=== PATIENT | male | born 1945 | race Caucasian/White ===

== ENCOUNTER 2021-05-18 20:49 | Inpatient (IN) | payer OTHER ==
[2021-05-18 21:16] VITALS: BMI 65.1
[2021-05-18] MEDS ORDERED: NALOXONE HCL 0.4 MG/ML VIAL IVPUSH ONE (21:32)
[2021-05-18] MEDS ORDERED: NALOXONE HCL 0.4 MG/ML VIAL ONE (21:42)
[2021-05-18 22:26] LABS: HEMATOCRIT 47.1 % (35.4-49); HEMOGLOBIN 15.4 GM/dL (11.7-16.9); MCH 31.7 pg (25.7-33.7); MCHC 32.7 g/dl (32.0-35.9); MEAN CELL VOLUME 96.9 fl (80-96); PLATELET COUNT 233 10^3/uL (134-434); RBC 4.86 M/mm3 (4.00-5.60); WHITE BLOOD COUNT 16.2 K/mm3 (4.0-10.0)
[2021-05-18 22:28] LABS: CHLORIDE 104 mmol/L (98-107); SODIUM 141 mmol/L (136-145)
[2021-05-18 22:29] LABS: INR 1.06 (0.83-1.09); PROTHROMBIN TIME (PATIENT) 12.2 SEC (9.7-13.0)
[2021-05-18 22:30] LABS: ALBUMIN 4.3 g/dl (3.4-5.0); ANION GAP 8 MMOL/L (8-16); CALCIUM 9.7 mg/dL (8.5-10.1); CO2 29 mmol/L (21-32); GLUCOSE,RANDOM 157 mg/dL (74-106); MAGNESIUM 2.4 mg/dL (1.8-2.4)
[2021-05-18 22:32] LABS: ACTIVATED PTT 33.2 SECONDS (25.2-36.5)
[2021-05-18 22:33] LABS: CREATININE 2.8 mg/dL (0.55-1.3); SGOT/AST 33 U/L (15-37); SGPT/ALT 46 U/L (13-61)
[2021-05-18 22:35] LABS: BILIRUBIN,TOTAL 1.2 mg/dL (0.2-1); TOT PROT 8.6 g/dl (6.4-8.2)
[2021-05-18 22:36] LABS: EPI CELLS 12 /uL (0-25.1); HYALINE CASTS 6 /uL (0-3.1); PH,URINE 5.5 (5.0-8.0); URINE APPEARANCE TURBID; URINE BACTERIA 3 /uL (0-1359); URINE BILIRUBIN NEGATIVE (NEGATIVE); URINE COLOR YELLOW; URINE GLUCOSE (UA) NEGATIVE (NEGATIVE); URINE KETONE TRACE (NEGATIVE); URINE LEUK ESTERASE TRACE (NEGATIVE); URINE NITRITE NEGATIVE (NEGATIVE); URINE PROTEIN TRACE (NEGATIVE); URINE RBC 20 /uL (0-23.9); URINE WBC 9 /uL (0-25.8)
[2021-05-18 22:36] LABS: ALK PHOS 124 U/L (45-117)
[2021-05-18 22:48] LABS: LACTIC ACID 2.6 mmol/L (0.4-2.0)
[2021-05-18] MEDS ORDERED: SODIUM CHLORIDE 1,000 ML IV STA (22:55)
[2021-05-19 00:01] LABS: N-TERMINAL BNP 417.1 pg/ml (5-450)
[2021-05-19 00:01] LABS: METHADONE, UR NEGATIVE (NEGATIVE); PHENCYCLIDINE,URINE NEGATIVE (NEGATIVE); URINE BENZODIAZEPINES NEGATIVE (NEGATIVE)
[2021-05-19 00:02] LABS: COCAINE, UR NEGATIVE (NEGATIVE); OPIATES, URI POSITIVE (NEGATIVE); URINE AMPHETAMINES NEGATIVE (NEGATIVE); URINE BARBITURATES NEGATIVE (NEGATIVE)
[2021-05-19] MEDS ORDERED: ACETAMINOPHEN 325 MG TABLET (FP) PO PRN (01:00)
[2021-05-19] MEDS ORDERED: POLYETHYLENE GLYCOL (HEALTHYLAX) 3350 17 GM PACKET PO PRN (01:00)
[2021-05-19 02:08] LABS: CALCIUM 8.6 mg/dL (8.5-10.1)
[2021-05-19 02:12] LABS: CREATININE 2.8 mg/dL (0.55-1.3)
[2021-05-19 02:25] LABS: LACTIC ACID 2.4 mmol/L (0.4-2.0)
[2021-05-19] MEDS ORDERED: DEXTROSE 50%-WATER - 25 GM/50 ML VIAL IVPUSH STA (02:32)
[2021-05-19] MEDS ORDERED: INSULIN REGULAR HUMAN 100 UNITS/ML *VIAL IVPUSH ONE (02:32)
[2021-05-19] MEDS ORDERED: SODIUM BICARBONATE 8.4% 50 MEQ/50 ML DISP.SYRIN IVPUSH ONE (02:35)
[2021-05-19] MEDS ORDERED: SODIUM BICARBONATE 8.4% - 50 ML ONE (02:44)
[2021-05-19] MEDS: INSULIN SLIDING SCALE (NOVOLOG) 1 VIAL SQ SCH ×3 (08:07→21:53)
[2021-05-19] MEDS ORDERED: SODIUM ZIRCONIUM CYCLOSILICATE (LOKELMA) 5 GM PACKET ONE (08:11)
[2021-05-19] MEDS ORDERED: MULTIVITAMINS (DAILY MVI) TABLET (FP) ONE (08:11)
[2021-05-19] MEDS ORDERED: ASPIRIN COATED 81 MG TABLET.EC ONE (08:11)
[2021-05-19] MEDS: SODIUM ZIRCONIUM CYCLOSILICATE (LOKELMA) 5 GM PACKET PO SCH (10:37)
[2021-05-19] MEDS: ASPIRIN COATED 81 MG TABLET.EC PO SCH (10:37)
[2021-05-19] MEDS: FLUTICASONE PROP 0.05% 16 GM NASAL SPRAY NS SCH (10:37)
[2021-05-19] MEDS: MULTIVITAMINS (DAILY MVI) TABLET (FP) PO SCH (10:37)
[2021-05-20] MEDS: INSULIN SLIDING SCALE (NOVOLOG) 1 VIAL SQ SCH ×4 (06:00→20:35)
[2021-05-20 08:53] LABS: BASO % 0.4 % (0-2.0); EOS % 5.4 % (0-4.5); HEMATOCRIT 39.9 % (35.4-49); HEMOGLOBIN 13.3 GM/dL (11.7-16.9); LYMPH % 25.5 % (8-40); MCHC 33.4 g/dl (32.0-35.9); MEAN CELL VOLUME 95.8 fl (80-96); MEAN PLT VOLUME 8.2 fl (7.5-11.1); MONO % 10.6 % (3.8-10.2); NEUT % 58.1 % (42.8-82.8); PLATELET COUNT 164 10^3/uL (134-434); RBC 4.17 M/mm3 (4.00-5.60); RDW 13.5 % (11.9-15.9); WHITE BLOOD COUNT 12.4 K/mm3 (4.0-10.0)
[2021-05-20 09:17] LABS: BLOOD UREA NITROGEN 47.4 mg/dL (7-18)
[2021-05-20 09:22] LABS: CREATININE 2.7 mg/dL (0.55-1.3); TOT PROT 6.7 g/dl (6.4-8.2)
[2021-05-20] MEDS: ASPIRIN COATED 81 MG TABLET.EC PO SCH (09:23)
[2021-05-20] MEDS: MULTIVITAMINS (DAILY MVI) TABLET (FP) PO SCH (09:23)
[2021-05-20 09:31] LABS: ALBUMIN 3.4 g/dl (3.4-5.0); CALCIUM 8.1 mg/dL (8.5-10.1)
[2021-05-20 10:08] LABS: SARS-CoV-2 NAA Not Detected (Not Detected)
[2021-05-20] MEDS: FLUTICASONE PROP 0.05% 16 GM NASAL SPRAY NS SCH (17:19)
[2021-05-20] MEDS: SODIUM ZIRCONIUM CYCLOSILICATE (LOKELMA) 5 GM PACKET PO SCH (17:19)
[2021-05-21] MEDS ORDERED: LORazepam 2 MG/ML SDV VIAL IVPUSH ONE (03:27)
[2021-05-21] MEDS: ASPIRIN COATED 81 MG TABLET.EC PO SCH (10:07)
[2021-05-21] MEDS: MULTIVITAMINS (DAILY MVI) TABLET (FP) PO SCH (10:07)
[2021-05-21] MEDS: ESCITALOPRAM OXALATE 10 MG TABLET PO SCH (10:09)
[2021-05-21] MEDS: FLUTICASONE PROP 0.05% 16 GM NASAL SPRAY NS SCH (10:10)
[2021-05-21] MEDS: SODIUM ZIRCONIUM CYCLOSILICATE (LOKELMA) 5 GM PACKET PO SCH (10:14)
[2021-05-21] MEDS ORDERED: MELATONIN 5 MG TABLETS PO ONE (20:17)
[2021-05-22] MEDS: ASPIRIN COATED 81 MG TABLET.EC PO SCH (09:37)
[2021-05-22] MEDS: FLUTICASONE PROP 0.05% 16 GM NASAL SPRAY NS SCH (09:37)
[2021-05-22] MEDS: MULTIVITAMINS (DAILY MVI) TABLET (FP) PO SCH (09:37)
[2021-05-22] MEDS: amLODIPine BESYLATE 5 MG TABLET (FP) PO SCH (09:37)
[2021-05-22] MEDS: ESCITALOPRAM OXALATE 10 MG TABLET PO SCH (09:37)
[2021-05-22] MEDS: SODIUM ZIRCONIUM CYCLOSILICATE (LOKELMA) 5 GM PACKET PO SCH (11:48)
[2021-05-23] MEDS ORDERED: MELATONIN 5 MG TABLETS PO ONE (01:37)
[2021-05-23] MEDS: ASPIRIN COATED 81 MG TABLET.EC PO SCH (09:05)
[2021-05-23] MEDS: amLODIPine BESYLATE 5 MG TABLET (FP) PO SCH (09:05)
[2021-05-23] MEDS: SODIUM ZIRCONIUM CYCLOSILICATE (LOKELMA) 5 GM PACKET PO SCH (09:06)
[2021-05-23] MEDS: MULTIVITAMINS (DAILY MVI) TABLET (FP) PO SCH (09:06)
[2021-05-23] MEDS: ESCITALOPRAM OXALATE 10 MG TABLET PO SCH (09:06)
[2021-05-23] MEDS: FLUTICASONE PROP 0.05% 16 GM NASAL SPRAY NS SCH (09:06)
[2021-05-24] MEDS: ASPIRIN COATED 81 MG TABLET.EC PO SCH (09:24)
[2021-05-24] MEDS: MULTIVITAMINS (DAILY MVI) TABLET (FP) PO SCH (09:24)
[2021-05-24] MEDS: ESCITALOPRAM OXALATE 10 MG TABLET PO SCH (09:24)
[2021-05-24] MEDS: amLODIPine BESYLATE 5 MG TABLET (FP) PO SCH (09:24)
[2021-05-24] MEDS: FLUTICASONE PROP 0.05% 16 GM NASAL SPRAY NS SCH (09:26)
[2021-05-24] MEDS: SODIUM ZIRCONIUM CYCLOSILICATE (LOKELMA) 5 GM PACKET PO SCH (11:44)
[2021-05-24 11:45] LABS: CALCIUM 8.3 mg/dL (8.5-10.1)
[2021-05-24 11:46] LABS: ALBUMIN 3.7 g/dl (3.4-5.0)
[2021-05-24 11:49] LABS: CREATININE 1.4 mg/dL (0.55-1.3)
[2021-05-24 11:50] LABS: BILIRUBIN,TOTAL 0.8 mg/dL (0.2-1)
[2021-05-24 11:51] LABS: TOT PROT 7.3 g/dl (6.4-8.2)
[2021-05-24 14:40] VITALS: BP 133/65; PULSE 60; TEMP 98.3
== END 2021-05-24 18:16 | disposition home or self-care (01) | DRG 914 ==
LOC: JER 20:49 → JERBED 21:19 → J4S 05-19 18:58
PROVIDERS: ADMIT Internal Medicine; ATTEND Internal Medicine
DX: T14.91XA Suicide attempt, initial encounter (principal); N17.9 Acute kidney failure, unspecified; T40.2X2A Poisoning by other opioids, intentional self-harm, initial encounter; Y93.9 Activity, unspecified; Y92.89 Other specified places as the place of occurrence of the external cause; Y99.9 Unspecified external cause status; F32.9 Major depressive disorder, single episode, unspecified; D72.829 Elevated white blood cell count, unspecified; G47.33 Obstructive sleep apnea (adult) (pediatric); E87.5 Hyperkalemia
CPT/HCPCS: 36415; 70450-TC; 71045-TC-FY; 80048; 80053; 80307; 81003; 82962; 83036; 83605; 83735; 83880; 84484; 85025; 85027; 85610; 85730; 93005; 93010; 99285-25; C9803; U0003; U0005